=== PATIENT | male | born 1980 | race Caucasian/White ===

== ENCOUNTER 2019-07-20 01:22 | Emergency (ER) | payer MEDICAID ==
[~2019-07-20] VITALS: Ht 182.9 cm; Wt 75.2 kg
[2019-07-20 05:30] VITALS: BP 140/85
== END 2019-07-20 06:15 | disposition left against medical advice (07) ==
LOC: ER 01:22
DX: K92.2 Gastrointestinal hemorrhage, unspecified (principal)
CPT/HCPCS: 99281

== ENCOUNTER 2022-11-09 04:03 | Emergency (ER) | payer MEDICAID ==
[~2022-11-09] VITALS: Ht 182.9 cm; Wt 53.0 kg
[2022-11-09 04:06] VITALS: O2SAT 97
[2022-11-09] MEDS ORDERED: SODIUM CHLORIDE 0.9% 1,000 ML IV ONE (05:15)
[2022-11-09 05:36] LABS: BASOPHILS % 2.1 % (0.0-2.0); EOSINOPHILS % 1.8 % (0.0-5.0); HEMATOCRIT. 42.5 % (42.0-52.0); HEMOGLOBIN. 14.6 g/dL (14.0-18.0); LYMPHOCYTES % 18.4 % (20.0-50.0); MEAN CORPUSCULAR HEMOGLOBIN 29.5 pg (28.0-32.0); MEAN CORPUSCULAR VOLUME 86.3 fL (80.0-94.0); MEAN PLATELET VOLUME 8.2 fl (7.4-10.4); MONOCYTES % 9.2 % (2.0-8.0); NEUTROPHILS % 68.5 % (40.0-76.0); PLATELET 226 x1000/uL (130-400); RED BLOOD CELL COUNT 4.93 mill/uL (4.7-6.1); RED CELL DISTRIBUTION WIDTH 12.7 % (11.6-14.6)
[2022-11-09 05:37] LABS: CHLORIDE 107 mEq/L (98-107)
[2022-11-09 05:58] LABS: ETHANOL BLOOD < 10 mg/dL (-10)
[2022-11-09] MEDS ORDERED: NALO4SPR BOTHNSTRLS (06:41)
[2022-11-09 06:45] VITALS: BP 147/91; PULSE 81; RESP 18; TEMP 98.4
== END 2022-11-09 07:02 | disposition home or self-care (01) ==
LOC: ER 04:03
DX: T65.91XA Toxic effect of unspecified substance, accidental (unintentional), initial encounter (principal); Y92.9 Unspecified place or not applicable
CPT/HCPCS: 36415; 70450; 71045; 80053; 80307; 80320; 80329; 83605; 85025; 96360; 99285; J7030; G0480